=== PATIENT | male | born 1960 | race Caucasian/White ===

== ENCOUNTER 2021-02-07 09:22 | Observation (INO) | payer SELFPAY ==
--- NOTE | 2021-02-07 09:28 | ERPHSYRPT ---
- History of Present Illness Time Seen by Provider: 02/07/21 09:23 Source: patient Exam Limitations: clinical condition, intoxication Physician History: This is a 60-year-old white male who has a history of depression, seizure disorder, chronic alcoholism hepatitis C and hypothyroidism and is visiting from [place] during the Mother's Day weekend. Patient has been in town for a few days. It is postulated that he has been drinking alcohol significantly less in the last several days since he is with family members. However, it appears as he had a binge drinking episode last night into [employer]. He had 2 seizures approximately 5 minutes apart that were tonic-clonic in type per witness. He was then postictal. EMS was notified and patient was brought into the emergency department tachycardic, breathing on his own with clearing of his postictal state and answering a few questions. He denies chest pain and he denies shortness of breath. He has no abdominal pain complaints. Patient has had traumatic head injury in the distant past followed by seizures. He is supposed to be taking Keppra, Zoloft, oxybutynin, levothyroxine. It appears as though he has been noncompliant with th these medications. Patient's daughter, Martha, is his medical power of divorce attorney. At the family urging, patient's family state that the patient has received COVID-19 vaccination (? [employer]) Timing/Duration: today Character of Deficits: none Deficits: no difficulties Baseline/Normal Cognition: alert oriented x 3 Current Cognition: poor alertness Baseline Gait: walks w/o assistance Associated Symptoms: seizures Allergies/Adverse Reactions: No Known Drug Allergies Allergy (Unverified 02/07/21 09:42) Home Medications: Hydrochlorothiazide 50 mg PO DAILY 02/07/21 [History] Levothyroxine Sodium [Levothyroxine] 75 mcg PO DAILY 02/07/21 [History] Lisinopril 10 mg [Zestril 10 MG] 10 mg PO DAILY 02/07/21 [History] Oxybutynin Chloride [Oxybutynin Chloride ER] 5 mg PO DAILY 02/07/21 [History] Sertraline HCl [Zoloft] 25 mg PO DAILY 02/07/21 [History] Zolpidem Tartrate 10 mg [Ambien 10 MG] 10 mg PO HS 02/07/21 [History] levETIRAcetam [Levetiracetam] 750 mg PO DAILY 02/07/21 [History] Travel Risk - International Travel Have you traveled outside of the country in past 3 weeks: No - Coronavirus Screening Are you exhibiting any of the following symptoms?: No Close contact with a COVID-19 positive Pt in past 14-21 Days: No - Vaccine Status Have you recieved a Covid-19 vaccination: Yes - Review of Systems Constitutional: Lethargy, Weakness Eyes: No Symptoms Ears, Nose, & Throat: No Symptoms Respiratory: No Symptoms Cardiac: No Symptoms Abdominal/Gastrointestinal: Nausea, No Abdominal Pain, No Vomiting Genitourinary Symptoms: No Symptoms Musculoskeletal: No Symptoms Skin: No Symptoms Neurological: Seizure Psychological: Alcohol Abuse, Depression, No Suicidal Ideations, No Homicidal Ideations Endocrine: No Symptoms Hematologic/Lymphatic: No Symptoms Immunological/Allergic: No Symptoms All Other Systems: Reviewed and Negative - Past Medical History Pertinent Past Medical History: Yes Neurological History: Seizures Endocrine Medical History: Hypothyroidism Psycho-Social History: Depression - Past Surgical History Past Surgical History: Yes - Nursing Vital Signs Nursing Vital Signs: Initial Vital Signs Pulse Rate 118 H 02/07/21 09:24 Respiratory Rate 16 02/07/21 09:24 Blood Pressure 166/111 02/07/21 09:24 O2 Sat by Pulse Oximetry 93 L 02/07/21 09:24 Pain Scale Pain Intensity 0 - [place] Coma Scale Best Eye Response (Lanny): (4) open spontaneously Best Verbal Response (Lanny): (4) confused conversation Best Motor Response (Lanny): (6) obeys commands Lanny Total: 14 - Physical Exam General Appearance: lethargy, obese Eye Exam: bilateral eye: normal inspection, PERRL, EOMI Ears, Nose, Throat Exam: TMs normal, dry mucous membranes Neck Exam: normal inspection, non-tender, supple, full range of motion Respiratory: normal breath sounds, lungs clear, airway intact, No chest tenderness, No respiratory distress Cardiovascular: tachycardia Rectal Exam: not done Back Exam: normal inspection, normal range of motion, No CVA tenderness, No vertebral tenderness Extremity Exam: normal inspection, normal range of motion, pelvis stable Mental Status: cooperative, intoxicated appearance, lethargy (Mild but rousable) analytics architect Exam: normal hearing, PERRL, tongue midline Coordination/Gait: normal finger to nose Motor/Sensory: no motor deficit, no sensory deficit Skin Exam: normal color, warm, dry SpO2 Interpretation: normal O2 Delivery: Room Air - Course Nursing assessment & vital signs reviewed: Yes EKG Interpreted by Me: RATE (123), Sinus Tach, prolonged QT interval (Borderline), NORMAL QRS, NORMAL ST-T, Other (No acute ischemic changes. No comparison EKG available.) Ordered Tests: Active Orders 24 hr Category Date Time Status Specialty Development Consultant STAT Care 02/07/21 09:31 Active Clean Catch Urine Specimen STAT Care 02/07/21 09:30 Active EKG-ER Only STAT Care 02/07/21 09:30 Active IV Insertion STAT Care 02/07/21 09:30 Active NPO (ED) STAT Care 02/07/21 09:30 Active Pulse Oximetry (ED) STAT Care 02/07/21 09:30 Active HEAD WITHOUT CONTRAST [CT] Stat Exams 02/07/21 09:31 Taken Alcohol [ETHYL ALCOHOL] Stat Lab 02/07/21 10:30 Completed CBC W DIFF Stat Lab 02/07/21 10:30 Completed CMP Stat Lab 02/07/21 10:30 Completed Lactic Acid Stat Lab 02/07/21 10:55 Completed Lactic Acid Stat Lab 02/07/21 12:57 Received MAG [MAGNESIUM] Stat Lab 02/07/21 10:30 Completed T4 (Thyroxine) Stat Lab 02/07/21 10:30 Completed TROPONIN Q3H Lab 02/07/21 10:30 Completed TROPONIN Q3H Lab 02/07/21 12:27 Received TROPONIN Q3H Lab 02/07/21 15:45 Ordered TROPONIN Q3H Lab 02/07/21 18:45 Ordered TROPONIN Q3H Lab 02/07/21 21:45 Ordered TSH, 3RD Generation Stat Lab 02/07/21 10:30 Completed UA W/RFX UR CULTURE Stat Lab 02/07/21 10:52 Completed Urine Triage Profile Stat Lab 02/07/21 10:52 Completed Transfer Order Routine Transfer 02/07/21 Ordered Medication Summary Generic Name Dose Route Start Last Admin Trade Name Freq PRN Reason Stop Dose Admin Thiamine HCl 100 mg/ 1,000 mls @ 100 mls/hr 02/07/21 10:00 02/07/21 10:16 Multivitamins/Minerals 10 ml/ IV 03/09/21 09:59 100 mls/hr Folic Acid 1 mg/ Sodium .Q10H ANITHA Administration Chloride Discontinued Medications Generic Name Dose Route Start Last Admin Trade Name Mu PRN Reason Stop Dose Admin Acetaminophen 650 mg 02/07/21 11:52 02/07/21 11:53 Tylenol 325 Mg PO 02/07/21 11:53 650 mg STAT STA Administration Acetaminophen Confirm 02/07/21 11:53 Tylenol 325 Mg Administered 02/07/21 11:54 Dose 650 mg .ROUTE .STK-MED ONE Levetiracetam 1,000 mg/ 110 mls @ 400 mls/hr 02/07/21 10:11 02/07/21 10:52 Dextrose IV 02/07/21 10:27 400 mls/hr STAT ONE Administration Magnesium Oxide 400 mg 02/07/21 12:09 02/07/21 12:24 Mag-Ox 400 PO 02/07/21 12:10 400 mg STAT ONE Administration Magnesium Oxide Confirm 02/07/21 12:22 Mag-Ox 400 Administered 02/07/21 12:23 Dose 400 mg .ROUTE .STK-MED ONE Ondansetron HCl 4 mg 02/07/21 09:30 02/07/21 10:16 Zofran 4 Mg/2 Ml Vial IV 02/07/21 09:31 4 mg STAT ONE Administration Ondansetron HCl Confirm 02/07/21 10:12 Zofran 4 Mg/2 Ml Vial Administered 02/07/21 10:13 Dose 4 mg .ROUTE .STK-MED ONE Pantoprazole Sodium 40 mg 02/07/21 10:12 02/07/21 10:16 Protonix 40 Mg Iv IV 02/07/21 10:13 40 mg STAT ONE Administration Pantoprazole Sodium Confirm 02/07/21 10:14 Protonix 40 Mg Iv Administered 02/07/21 10:15 Dose 40 mg IV .STK-MED ONE Potassium Chloride 20 meq 02/07/21 12:07 02/07/21 12:23 Klor Con 10 Meq PO 02/07/21 12:08 20 meq STAT ONE Administration Potassium Chloride Confirm 02/07/21 12:21 Klor Con 10 Meq Administered 02/07/21 12:22 Dose 10 meq PO .STK-MED ONE Potassium Chloride Confirm 02/07/21 12:24 Klor Con 10 Meq Administered 02/07/21 12:25 Dose 10 meq PO .STK-MED ONE Lab/Rad Data: Laboratory Result Diagrams 02/07/21 10:30 02/07/21 10:30 Laboratory Results 02/07/21 02/07/21 02/07/21 Range/Units 10:55 10:52 10:52 WBC (4.0-10.5) K/mm3 RBC (4.1-5.6) M/mm3 Hgb (12.5-18.0) gm/dl Hct (42-50) % MCV (78-100) fl MCH (26-32) pg MCHC (32-36) g/dl RDW (11.5-14.0) % Plt Count (150-450) K/mm3 MPV (7.5-11.0) fl Gran % (36.0-66.0) % Eos # (Auto) (0-0.5) Absolute Lymphs (auto) (1.0-4.6) Absolute Monos (auto) (0.0-1.3) Lymphocytes % (24.0-44.0) % Monocytes % (0.0-12.0) % Eosinophils % (0.00-5.0) % Basophils % (0.0-0.4) % Absolute Granulocytes (1.4-6.9) Basophils # (0-0.4) Sodium (137-145) mmol/L Potassium (3.5-5.1) mmol/L Chloride (98-107) mmol/L Carbon Dioxide (22-30) mmol/L Anion Gap (5-15) MEQ/L BUN (9-20) mg/dL Creatinine (0.66-1.25) mg/dL Estimated GFR ML/MIN Glucose (74-106) mg/dL Lactic Acid 8.0 H (0.4-2.0) Calcium (8.4-10.2) mg/dL Magnesium (1.6-2.3) mg/dL Total Bilirubin (0.2-1.3) mg/dL AST (17-59) U/L ALT (0-50) U/L Alkaline Phosphatase (38-126) U/L Troponin I (0.000-0.034) ng/mL Serum Total Protein (6.3-8.2) g/dL Albumin (3.5-5.0) g/dL Thyroxine (T4) (5.53-10.96) ug/dL TSH 3rd Generation (0.47-4.68) mIU/L Urine Color YELLOW (YELLOW) Urine Appearance SLIGHTLY CLOUDY (CLEAR) Urine pH 6.0 (5-6) Ur Specific [place] 1.013 (1.005-1.025) Urine Protein 100 (Negative) Urine Ketones TRACE (NEGATIVE) Urine Blood MODERATE (0-5) Jan/ul Urine Nitrite NEGATIVE (NEGATIVE) Urine Bilirubin NEGATIVE (NEGATIVE) Urine Urobilinogen NEGATIVE (0-1) mg/dL Ur Leukocyte Esterase NEGATIVE (NEGATIVE) Urine WBC (Auto) 0-2 (0-5) /HPF Urine RBC (Auto) 0-2 (0-2) /HPF U Hyaline Cast (Auto) 6-10 (0-2) /LPF U Epithel Cells (Auto) NONE (FEW) /HPF Urine Bacteria (Auto) NONE SEEN (NEGATIVE) /HPF Urine Mucus (Auto) SLIGHT (NEGATIVE) /HPF Urine Culture Reflexed NO (NO) Urine Glucose NEGATIVE (NEGATIVE) mg/dL Urine Opiates Level NEGATIVE (NEGATIVE) Ur Methadone NEGATIVE (NEGATIVE) Urine Barbiturates NEGATIVE (NEGATIVE) Ur Phencyclidine (PCP) NEGATIVE (NEGATIVE) Urine Amphetamine NEGATIVE (NEGATIVE) U Benzodiazepine Level NEGATIVE (NEGATIVE) Urine Cocaine NEGATIVE (NEGATIVE) Urine Marijuana (THC) NEGATIVE (NEGATIVE) Ethyl Alcohol (0-10) mg/dL 02/07/21 02/07/21 02/07/21 Range/Units 10:30 10:30 10:30 WBC (4.0-10.5) K/mm3 RBC (4.1-5.6) M/mm3 Hgb (12.5-18.0) gm/dl Hct (42-50) % MCV (78-100) fl MCH (26-32) pg MCHC (32-36) g/dl RDW (11.5-14.0) % Plt Count (150-450) K/mm3 MPV (7.5-11.0) fl Gran % (36.0-66.0) % Eos # (Auto) (0-0.5) Absolute Lymphs (auto) (1.0-4.6) Absolute Monos (auto) (0.0-1.3) Lymphocytes % (24.0-44.0) % Monocytes % (0.0-12.0) % Eosinophils % (0.00-5.0) % Basophils % (0.0-0.4) % Absolute Granulocytes (1.4-6.9) Basophils # (0-0.4) Sodium (137-145) mmol/L Potassium (3.5-5.1) mmol/L Chloride (98-107) mmol/L Carbon Dioxide (22-30) mmol/L Anion Gap (5-15) MEQ/L BUN (9-20) mg/dL Creatinine (0.66-1.25) mg/dL Estimated GFR ML/MIN Glucose (74-106) mg/dL Lactic Acid (0.4-2.0) Calcium (8.4-10.2) mg/dL Magnesium 1.5 L (1.6-2.3) mg/dL Total Bilirubin (0.2-1.3) mg/dL AST (17-59) U/L ALT (0-50) U/L Alkaline Phosphatase (38-126) U/L Troponin I < 0.012 (0.000-0.034) ng/mL Serum Total Protein (6.3-8.2) g/dL Albumin (3.5-5.0) g/dL Thyroxine (T4) 5.24 L (5.53-10.96) ug/dL TSH 3rd Generation 6.960 H (0.47-4.68) mIU/L Urine Color (YELLOW) Urine Appearance (CLEAR) Urine pH (5-6) Ur Specific [place] (1.005-1.025) Urine Protein (Negative) Urine Ketones (NEGATIVE) Urine Blood (0-5) Jan/ul Urine Nitrite (NEGATIVE) Urine Bilirubin (NEGATIVE) Urine Urobilinogen (0-1) mg/dL Ur Leukocyte Esterase (NEGATIVE) Urine WBC (Auto) (0-5) /HPF Urine RBC (Auto) (0-2) /HPF U Hyaline Cast (Auto) (0-2) /LPF U Epithel Cells (Auto) (FEW) /HPF Urine Bacteria (Auto) (NEGATIVE) /HPF Urine Mucus (Auto) (NEGATIVE) /HPF Urine Culture Reflexed (NO) Urine Glucose (NEGATIVE) mg/dL Urine Opiates Level (NEGATIVE) Ur Methadone (NEGATIVE) Urine Barbiturates (NEGATIVE) Ur Phencyclidine (PCP) (NEGATIVE) Urine Amphetamine (NEGATIVE) U Benzodiazepine Level (NEGATIVE) Urine Cocaine (NEGATIVE) Urine Marijuana (THC) (NEGATIVE) Ethyl Alcohol 17 H (0-10) mg/dL 02/07/21 02/07/21 Range/Units 10:30 10:30 WBC 5.9 (4.0-10.5) K/mm3 RBC 4.31 (4.1-5.6) M/mm3 Hgb 14.8 (12.5-18.0) gm/dl Hct 42.8 (42-50) % MCV 99.3 (78-100) fl MCH 34.3 H (26-32) pg MCHC 34.6 (32-36) g/dl RDW 13.4 (11.5-14.0) % Plt Count 173 (150-450) K/mm3 MPV 9.7 (7.5-11.0) fl Gran % 82.7 H (36.0-66.0) % Eos # (Auto) 0.02 (0-0.5) Absolute Lymphs (auto) 0.33 L (1.0-4.6) Absolute Monos (auto) 0.63 (0.0-1.3) Lymphocytes % 5.6 L (24.0-44.0) % Monocytes % 10.7 (0.0-12.0) % Eosinophils % 0.3 (0.00-5.0) % Basophils % 0.7 (0.0-0.4) % Absolute Granulocytes 4.86 (1.4-6.9) Basophils # 0.04 (0-0.4) Sodium 139 (137-145) mmol/L Potassium 3.0 L* (3.5-5.1) mmol/L Chloride 96 L (98-107) mmol/L Carbon Dioxide 26 (22-30) mmol/L Anion Gap 19.8 H (5-15) MEQ/L BUN 10 (9-20) mg/dL Creatinine 0.68 (0.66-1.25) mg/dL Estimated GFR > 60.0 ML/MIN Glucose 144 H (74-106) mg/dL Lactic Acid (0.4-2.0) Calcium 9.3 (8.4-10.2) mg/dL Magnesium (1.6-2.3) mg/dL Total Bilirubin 0.60 (0.2-1.3) mg/dL AST 185 H (17-59) U/L ALT 71 H (0-50) U/L Alkaline Phosphatase 107 (38-126) U/L Troponin I (0.000-0.034) ng/mL Serum Total Protein 7.5 (6.3-8.2) g/dL Albumin 4.1 (3.5-5.0) g/dL Thyroxine (T4) (5.53-10.96) ug/dL TSH 3rd Generation (0.47-4.68) mIU/L Urine Color (YELLOW) Urine Appearance (CLEAR) Urine pH (5-6) Ur Specific [place] (1.005-1.025) Urine Protein (Negative) Urine Ketones (NEGATIVE) Urine Blood (0-5) Jan/ul Urine Nitrite (NEGATIVE) Urine Bilirubin (NEGATIVE) Urine Urobilinogen (0-1) mg/dL Ur Leukocyte Esterase (NEGATIVE) Urine WBC (Auto) (0-5) /HPF Urine RBC (Auto) (0-2) /HPF U Hyaline Cast (Auto) (0-2) /LPF U Epithel Cells (Auto) (FEW) /HPF Urine Bacteria (Auto) (NEGATIVE) /HPF Urine Mucus (Auto) (NEGATIVE) /HPF Urine Culture Reflexed (NO) Urine Glucose (NEGATIVE) mg/dL Urine Opiates Level (NEGATIVE) Ur Methadone (NEGATIVE) Urine Barbiturates (NEGATIVE) Ur Phencyclidine (PCP) (NEGATIVE) Urine Amphetamine (NEGATIVE) U Benzodiazepine Level (NEGATIVE) Urine Cocaine (NEGATIVE) Urine Marijuana (THC) (NEGATIVE) Ethyl Alcohol (0-10) mg/dL - Progress Progress: improved, re-examined Progress Note: 02/07/21 10:30 CAT scan of the head without contrast shows encephalomalacia within the right temporal lobe and within the right frontal lobe. There is greater than expected degree of age-related atrophy and chronic white matter ischemic changes. There is no acute intra-axial or extra-axial hemorrhage appreciated. Counseled pt/family regarding: lab results, diagnosis, need for follow-up, rad results - Departure Departure Disposition: Observation Clinical Impression: Seizure, Noncompliance with medication regimen, Alcohol withdrawal, Hypothyr oid, Hypertension Condition: Fair Critical Care Time: No Referrals: DOCTOR,NO FAMILY [Primary Care Provider] -
[2021-02-07] MEDS ORDERED: Zofran 4 MG/2 ML VIAL IV ONE (09:30)
[2021-02-07] MEDS ORDERED: Sodium Chloride 0.9% W/ 20 mEq KCl/LITER 1,000 ML IV SCH (09:45)
[2021-02-07] MEDS ORDERED: THIAMINE 200 MG/2 ML*** 100 MG, Vitamins For Infusion 10 ML INJECTION*** 10 ML, FOLNATE... IV SCH ×4 (10:00)
[2021-02-07] MEDS ORDERED: Keppra 500 MG/5 ML*** 1,000 MG in D5w 100ML Mini Bag 100 ML 100 ML IV ONE (10:11)
[2021-02-07] MEDS ORDERED: PROTONIX 40 MG IV IV ONE ×2 (10:12→10:14)
[2021-02-07] MEDS ORDERED: Zofran 4 MG/2 ML VIAL ONE (10:12)
[2021-02-07 11:08] LABS: Absolute Neutrophil Ct (ANC) 4.86 (1.4-6.9); BASOPHIL % 0.7 % (0.0-0.4); Basophil (Absolute #) 0.04 (0-0.4); Eosinophil % 0.3 % (0.00-5.0); Eosinophil (Absolute #) 0.02 (0-0.5); Hematocrit 42.8 % (42-50); Hemoglobin 14.8 gm/dl (12.5-18.0); Lymphocyte (Absolute #) 0.33 (1.0-4.6); Lymphocytes % 5.6 % (24.0-44.0); Mean Cell Volume 99.3 fl (78-100); Mean Corpuscular Hemoglobin 34.3 pg (26-32); Mean Corpuscular Hgb Concent. 34.6 g/dl (32-36); Mean Platelet Volume 9.7 fl (7.5-11.0); Monocyte (Absolute #) 0.63 (0.0-1.3); Monocytes % 10.7 % (0.0-12.0); Neutrophil % 82.7 % (36.0-66.0); Platelet Count 173 K/mm3 (150-450); Red Blood Count 4.31 M/mm3 (4.1-5.6); Red Cell Distribution Width 13.4 % (11.5-14.0); White Blood Count 5.9 K/mm3 (4.0-10.5)
[2021-02-07 11:18] LABS: MAGNESIUM 1.5 mg/dL (1.6-2.3)
[2021-02-07 11:19] LABS: ALBUMIN 4.1 g/dL (3.5-5.0); ALKALINE PHOSPHATASE 107 U/L (38-126); ANION GAP 19.8 MEQ/L (5-15); BLOOD UREA NITROGEN 10 mg/dL (9-20); CHLORIDE 96 mmol/L (98-107); Calcium 9.3 mg/dL (8.4-10.2); Carbon Dioxide 26 mmol/L (22-30); Creatinine 1 0.68 mg/dL (0.66-1.25); EST GLOMERULAR FILTRATION RATE > 60.0 ML/MIN; Glucose 144 mg/dL (74-106); SGOT/AST 185 U/L (17-59); SGPT/ALT 71 U/L (0-50); SODIUM 139 mmol/L (137-145); Total Protein 7.5 g/dL (6.3-8.2)
[2021-02-07 11:26] LABS: Appearance SLIGHTLY CLOUDY (CLEAR); Bilirubin NEGATIVE (NEGATIVE); Blood MODERATE Ery/ul (0-5); Glucose NEGATIVE (NEGATIVE); Ketones TRACE (NEGATIVE); Leukocyte Esterase NEGATIVE (NEGATIVE); Mucus SLIGHT /HPF (NEGATIVE); Nitrite NEGATIVE (NEGATIVE); Protein,Urine Dip 100 (Negative); RBC 0-2 /HPF (0-2); Specific Gravity 1.013 (1.005-1.025); Urobilinogen NEGATIVE mg/dL (0-1); WBC 0-2 /HPF (0-5)
[2021-02-07 11:30] LABS: Amphetamine,Urine NEGATIVE (NEGATIVE); Bacteria NONE SEEN /HPF (NEGATIVE); Barbiturate,Urine NEGATIVE (NEGATIVE); Benzodiazepine,Urine NEGATIVE (NEGATIVE); Cocaine,Urine NEGATIVE (NEGATIVE); Methadone,Urine NEGATIVE (NEGATIVE); Opiate,Urine NEGATIVE (NEGATIVE); PCP,Urine NEGATIVE (NEGATIVE); THC,Urine NEGATIVE (NEGATIVE)
[2021-02-07] MEDS ORDERED: TYLENOL 325 MG PO STA (11:52)
[2021-02-07] MEDS ORDERED: TYLENOL 325 MG ONE (11:53)
[2021-02-07 11:58] LABS: T4 (Thyroxine) 5.24 ug/dL (5.53-10.96); TSH, 3RD Generation 6.96 mIU/L (0.47-4.68)
[2021-02-07] MEDS ORDERED: Klor Con 10 MEQ PO ONE ×3 (12:07→12:24)
[2021-02-07] MEDS ORDERED: MAG-OX 400 PO ONE (12:09)
[2021-02-07] MEDS ORDERED: MAG-OX 400 ONE (12:22)
[2021-02-07 14:19] LABS: Slide Review 1 YES
[2021-02-07 14:30] LABS: INFLUENZA A NEGATIVE (NEGATIVE); INFLUENZA B NEGATIVE (NEGATIVE); RESPIRATORY SYNCTIAL VIRUS NEGATIVE (Negative)
[2021-02-07] MEDS ORDERED: Ativan 2 MG/1 ML VIAL IV PRN (15:12)
[2021-02-07] MEDS ORDERED: TYLENOL 325 MG PO PRN (15:12)
[2021-02-07] MEDS: VASOTEC I.V. 2.5 MG IV PRN (18:25)
--- NOTE | 2021-02-07 19:47 | XRAY ---
Indication: Seizures. History seizures. Multiple contiguous axial images obtained through the head without contrast. Comparison: None Age-appropriate global atrophy and minimal periventricular degenerative micro-ischemia. There are old bifrontal infarcts right greater than left. No acute intracranial hemorrhage, hydrocephalus, or mass effect. Fourth ventricle is midline. Bowling-white matter differentiation preserved. Bony calvarium intact. Visualized paranasal sinuses and mastoid air cells are clear. Impression: 1. 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 2. Atrophy and degenerative micro-ischemia within normal limits for patient's age. 3. No acute intracranial abnormalities. Comment: Preliminary interpretation was made by [facility]. No critical discrepancy.
[2021-02-07] MEDS ORDERED: KEPPRA 500 MG PO SCH (21:00)
[2021-02-07] MEDS ORDERED: Keppra 250 MG ONE (21:17)
[2021-02-07] MEDS ORDERED: KEPPRA 500 MG PO ONE (22:00)
[2021-02-07] MEDS ORDERED: Ambien 10 MG PO ONE (22:00)
[2021-02-08] MEDS: VASOTEC I.V. 2.5 MG IV PRN ×2 (00:06→07:47)
[2021-02-08 06:51] LABS: Absolute Neutrophil Ct (ANC) 4.18 (1.4-6.9); BASOPHIL % 0.3 % (0.0-0.4); Basophil (Absolute #) 0.02 (0-0.4); Eosinophil % 1.8 % (0.00-5.0); Eosinophil (Absolute #) 0.11 (0-0.5); Hematocrit 42.9 % (42-50); Hemoglobin 14.2 gm/dl (12.5-18.0); Lymphocyte (Absolute #) 0.92 (1.0-4.6); Lymphocytes % 15.3 % (24.0-44.0); Mean Cell Volume 102.1 fl (78-100); Mean Corpuscular Hemoglobin 33.8 pg (26-32); Mean Corpuscular Hgb Concent. 33.1 g/dl (32-36); Mean Platelet Volume 9.8 fl (7.5-11.0); Monocytes % 13.3 % (0.0-12.0); Neutrophil % 69.3 % (36.0-66.0); Platelet Count 164 K/mm3 (150-450); Red Cell Distribution Width 13.4 % (11.5-14.0)
[2021-02-08 06:56] LABS: ALBUMIN 3.8 g/dL (3.5-5.0); ALKALINE PHOSPHATASE 82 U/L (38-126); ANION GAP 11.7 MEQ/L (5-15); BLOOD UREA NITROGEN 8 mg/dL (9-20); CHLORIDE 97 mmol/L (98-107); Calcium 8.8 mg/dL (8.4-10.2); Carbon Dioxide 29 mmol/L (22-30); Creatinine 1 0.64 mg/dL (0.66-1.25); EST GLOMERULAR FILTRATION RATE > 60.0 ML/MIN; Glucose 94 mg/dL (74-106); SGOT/AST 125 U/L (17-59); SGPT/ALT 60 U/L (0-50); SODIUM 136 mmol/L (137-145)
[2021-02-08 06:58] LABS: Potassium 2.7 mmol/L (3.5-5.1)
[2021-02-08] MEDS ORDERED: POTASSIUM CHLORIDE 20 mEq IN WATER 100ML 20 MEQ/100 ML BAG IV ONE (07:15)
[2021-02-08] MEDS ORDERED: Klor Con 10 MEQ PO ONE (07:15)
[2021-02-08] MEDS ORDERED: Sodium Chloride 0.9% 500 ML 500 ML IV SCH (07:30)
[2021-02-08 08:04] VITALS: BP 181/91; O2SAT 94
[2021-02-08] MEDS ORDERED: NON-FORMULARY ITEM (Sertraline Hcl [Zoloft] 25 MG) PO SCH (10:00)
[2021-02-08] MEDS ORDERED: LEVOTHYROXINE SODIUM 75 MCG PO SCH (10:00)
[2021-02-08] MEDS ORDERED: ZOLOFT 50 MG TABLET PO SCH (10:00)
[2021-02-08] MEDS ORDERED: Ditropan XL 5 MG PO SCH (10:00)
[2021-02-08] MEDS ORDERED: Zestril 10 MG PO SCH (10:00)
[2021-02-08] MEDS ORDERED: LEVETIRACETAM PO SCH ×2 (10:00)
[2021-02-08] MEDS ORDERED: LEVETIRACETAM 750 MG PO SCH (10:00)
[2021-02-08] MEDS ORDERED: hydroDIURIL 25 MG PO SCH (10:00)
[2021-02-08] MEDS ORDERED: SYNTHROID 75 MCG PO SCH (10:00)
[2021-02-08] MEDS ORDERED: HYDROCHLOROTHIAZIDE 50 MG PO SCH (10:00)
[2021-02-08] MEDS ORDERED: VENTOLIN COMMON CANISTER IH PRN (10:13)
[2021-02-08 10:50] VITALS: PULSE 78
[2021-02-08] MEDS ORDERED: Ambien 10 MG PO SCH (22:00)
--- NOTE | 2021-02-20 21:13 | PCM.SSS ---
History of Present Illness - Chief Complaint Chief Complaint: Seizure Date: 02/08/21 History of Present Illness: is a 61 year old male. Presented to ER after possible seizure like activity. Pt. with known seizure disorder and chronic alcohol abuse, is up from [facility] and noted decrease in usual Etoh use and has not been taking his siezure medications as prescribed for the past few months. - Review of Systems Constitutional: No Fever, No Chills Eyes: No Symptoms Ears, Nose, & Throat: No Symptoms Respiratory: No Cough, No Short Of Breath Cardiac: No Chest Pain, No Edema, No Syncope Abdominal/Gastrointestinal: No Abdominal Pain, No Nausea, No Vomiting, No Diarrhea Genitourinary Symptoms: No Dysuria Musculoskeletal: No Back Pain, No Neck Pain Skin: No Rash Neurological: Seizure Psychological: No Symptoms Endocrine: No Symptoms Hematologic/Lymphatic: No Symptoms Immunological/Allergic: No Symptoms Medications & Allergies Home Medications: Home Medication List Hydrochlorothiazide 50 mg PO DAILY 02/07/21 [History Confirmed 02/07/21] Levothyroxine Sodium [Levothyroxine] 75 mcg PO DAILY 02/07/21 [History Confirmed 02/07/21] Lisinopril 10 mg [Zestril 10 MG] 10 mg PO DAILY 02/07/21 [History Confirmed 02/07/21] Oxybutynin Chloride [Oxybutynin Chloride ER] 5 mg PO DAILY 02/07/21 [History Confirmed 02/07/21] Sertraline HCl [Zoloft] 25 mg PO DAILY 02/07/21 [History Confirmed 02/07/21] Zolpidem Tartrate 10 mg [Ambien 10 MG] 10 mg PO HS 02/07/21 [History Confirmed 02/07/21] levETIRAcetam [Levetiracetam] 750 mg PO BID 02/07/21 [History Confirmed 02/07/21] Albuterol 8 gm Mdi Hfa [Ventolin Hfa MDI] 2 puff IH Q4-6HPRN PRN #1 [email or web address] 02/08/21 [Rx] Allergies/Adverse Reactions: Allergies Allergy/AdvReac Type Severity Reaction Status Date / Time No Known Drug Allergies Allergy Unverified 02/07/21 09:42 - Past Medical History Past Medical History: Yes Neurological History: Seizures ENT History: No Pertinent History Cardiac History: Hypertension Respiratory History: COPD, Sleep Apnea Endocrine Medical History: Hypothyroidism Musculoskelatal History: Degenerative Disk Disease Pyscho-Social History: Depression Comment: TBI at age 17, BPH - Past Surgical History Past Surgical History: Yes Other Surgical History: pt unsure - Social History Smoking Status: Current some day smoker Exposure to second hand smoke: No Alcohol: Heavy Drug Use: none - Physical Exam General Appearance: no apparent distress, alert Neurologic Exam: alert, oriented x 3, cooperative, normal mood/affect, nml cerebellar function, nml station & gait, sensation nml, No motor deficits Eye Exam: PERRL/EOMI, eyes nml inspection Ears, Nose, Throat Exam: normal ENT inspection, TMs normal, pharynx normal, moist mucous membranes Neck Exam: normal inspection, non-tender, supple, full range of motion Respiratory Exam: normal breath sounds, lungs clear, No respiratory distress Cardiovascular Exam: regular rate/rhythm, normal heart sounds, normal peripheral pulses Gastrointestinal/Abdomen Exam: soft, normal bowel sounds, No tenderness, No mass Back Exam: normal inspection, normal range of motion, No CVA tenderness, No vertebral tenderness Extremity Exam: normal inspection, normal range of motion, pelvis stable Skin Exam: normal color, warm, dry, No rash Lymphatic Exam: No adenopathy Assessment/Plan (1) Alcohol withdrawal Status: Acute Code(s): F10.239 - ALCOHOL DEPENDENCE WITH WITHDRAWAL, UNSPECIFIED (2) Noncompliance with medication regimen Status: Acute Code(s): Z91.14 - PATIENT'S OTHER NONCOMPLIANCE WITH MEDICATION REGIMEN (3) Seizure Status: Acute Code(s): R56.9 - UNSPECIFIED CONVULSIONS Hospital Summary - Hospital Course Hospital Course: Pt. admitted and seizure medications resumed, pt. found to be hypokalemic the following am which was replaced, medications were refilled and replaced and pt. ready for discharge the following afternoon. - Vitals & Intake/Output Vital Signs: Vital Signs Temperature 98.6 F 02/08/21 08:00 Pulse Rate 78 02/08/21 10:47 Respiratory Rate 18 02/08/21 12:00 Blood Pressure 181/91 02/08/21 08:00 O2 Sat by Pulse Oximetry 94 L 02/08/21 10:47 - Lab Result Diagrams: 02/08/21 05:20 02/08/21 11:55 - Procedures and Test Procedures and Tests throughout Hospitalization: Therapy Orders & Screens 02/07/21 18:08 Smoking Cessation Education ONCE Comment: Diagnosis: Seizure Smoking Status: Current some day smoker Do you dip or chew tobacco: No 02/07/21 21:00 BiPap/CPAP ROUTINE Comment: home unit per home settings Diagnosis: Seizure 02/08/21 10:40 Respiratory Therapy Assessment DAILY Comment: Diagnosis: Seizure - Discharge Discharge Date: 02/08/21 Disposition: Home, Self-Care Condition: Stable Prescriptions: New Albuterol 8 gm Mdi Hfa [Ventolin Hfa MDI] 2 puff IH Q4-6HPRN PRN #1 [email or web address] PRN Reason: Shortness Of Breath Continue Lisinopril 10 mg [Zestril 10 MG] 10 mg PO DAILY levETIRAcetam [Levetiracetam] 750 mg PO BID Zolpidem Tartrate 10 mg [Ambien 10 MG] 10 mg PO HS Sertraline HCl [Zoloft] 25 mg PO DAILY Oxybutynin Chloride [Oxybutynin Chloride ER] 5 mg PO DAILY Levothyroxine Sodium [Levothyroxine] 75 mcg PO DAILY Hydrochlorothiazide 50 mg PO DAILY Instructions: Seizures, Adult (DC) Additional Instructions: FOLLOW UP WITH PRIMARY CARE PHYSICIAN
== END 2021-02-08 13:40 | disposition home or self-care (01) ==
LOC: ED 09:22 → MED SURG 15:08
PROVIDERS: ADMIT Family Medicine; ATTEND Family Medicine
DX: F10.239 Alcohol dependence with withdrawal, unspecified (principal); Z91.14 Patient's other noncompliance with medication regimen; R56.9 Unspecified convulsions; E87.6 Hypokalemia; Z79.899 Other long term (current) drug therapy; Z20.828 Contact with and (suspected) exposure to other viral communicable diseases; J44.9 Chronic obstructive pulmonary disease, unspecified; I10 Essential (primary) hypertension; G47.30 Sleep apnea, unspecified
CPT/HCPCS: 0241U; 36000; 36415; 70450; 80053; 80307; 81001; 83605; 83735; 84132; 84436; 84443; 84484; 85025; 93005; 93041; 93268; 94640; 94760; 96374; 96375; 99285; G0378; J1953; J2405; J3480; A9270-GY; G0480